=== PATIENT | female | born 1980 | race Caucasian/White ===

== ENCOUNTER → 2020-01-11 | Outpatient (CLI) | payer OTHER ==
[~2020-01-11] MED LIST: CEPH500; CYCL10 PO; Crutch1 EACH MISC; IBUP600; NAPR500 PO; Norco 5-325 Ta1 EACH PO; OXYACE5T PO; OXYC5 PO; TRIA80TC TOP; Ultram50 MG PO
== END | disposition home or self-care (01) ==
LOC: LAB SHORT 16:00 → LAB 16:00
DX: Z36.85 Encounter for antenatal screening for Streptococcus B (principal)
CPT/HCPCS: 87081; 87653

== ENCOUNTER → 2020-03-29 | Outpatient (CLI) | payer OTHER ==
[~2020-03-29] MED LIST changes: +Calcium Carbon500 MG PO; +IBUP800 PO; +ONDA4 PO; +PRENATAL TABLE1 EAC2 PO; +Percocet 5-3251 EACH PO
[2020-03-31 02:11] LABS: CHLAMYDIA TRACHOMATIS, NAA Negative (Negative)
== END | disposition home or self-care (01) ==
LOC: LAB 11:33
PROVIDERS: Advanced Practice Midwife
DX: Z11.3 Encounter for screening for infections with a predominantly sexual mode of transmission (principal)
CPT/HCPCS: 87491; 87591

== ENCOUNTER 2021-05-04 08:36 | Emergency (ER) | payer OTHER ==
[~2021-05-04] VITALS: Ht 172.7 cm; Wt 104.3 kg
[2021-05-04] MEDS ORDERED: PRED20 PO (09:17)
== END 2021-05-04 09:29 | disposition home or self-care (01) ==
LOC: ER 08:36
DX: L23.7 Allergic contact dermatitis due to plants, except food (principal)
CPT/HCPCS: 96372; 99282-25; J3301

== ENCOUNTER 2022-01-12 14:26 | Emergency (ER) | payer OTHER ==
[~2022-01-12] VITALS: Ht 170.2 cm; Wt 104.3 kg
[~2022-01-12 14:26] MED LIST changes: +PRED20 PO
== END 2022-01-12 17:36 | disposition home or self-care (01) ==
LOC: ER 14:26
DX: S93.401A Sprain of unspecified ligament of right ankle, initial encounter (principal); S90.31XA Contusion of right foot, initial encounter; V86.55XA Driver of 3- or 4- wheeled all-terrain vehicle (ATV) injured in nontraffic accident, initial encounter; Z79.52 Long term (current) use of systemic steroids
CPT/HCPCS: 73610; 73620; J1885